=== PATIENT | male | born 1995 | race Caucasian/White ===

== ENCOUNTER 2017-07-13 03:32 | Emergency (ER) | payer BC ==
[~2017-07-13] VITALS: Ht 182.9 cm; Wt 92.0 kg
[2017-07-13 03:35] VITALS: BP 125/69; PULSE 118; RESP 16; TEMP 98; O2SAT 99
[2017-07-13] MEDS ORDERED: ONDANSETRON HCL 4 MG/2 ML VIAL ONE (03:58)
[2017-07-13] MEDS ORDERED: SODIUM CHLORID 0.9% 500 ML INJ 500 ML IV ONE (04:00)
[2017-07-13] MEDS ORDERED: NITROGLYCERIN 2% OINT 1 GM PACKET TOP ONE (04:00)
[2017-07-13] MEDS ORDERED: SODIUM CHLORIDE 0.9% FLUSH 10 ML FLUSH IVF PRN (04:00)
[2017-07-13] MEDS ORDERED: ONDANSETRON HCL 4 MG/2 ML VIAL IV PUSH ONE (04:00)
[2017-07-13 04:01] VITALS: BP_SYST 132; BP_SYST 136; BP_DIAS 65; BP_DIAS 66
--- NOTE | 2017-07-13 04:18 | RADRPT ---
EXAM DATE/TIME: 07/13/2017 04:09 [facility] COMPARISON: No previous studies available for comparison. INDICATIONS : Chest pain. MEDICAL HISTORY : None. SURGICAL HISTORY : None. ENCOUNTER: Initial ACUITY: 1 day PAIN SCORE: 4/10 LOCATION: Left chest FINDINGS: A single view of the chest demonstrates the lungs to be symmetrically aerated without evidence of mas s, infiltrate or effusion. The cardiomediastinal contours are unremarkable. Osseous structures are intact. CONCLUSION: No acute disease. Madhav Sequeira MD on July 13, 2017 at 4:16 Board Certified Radiologist. This report was verified electronically.
[2017-07-13] MEDS ORDERED: ALUMINUM/MAGNESIUM/SIMETH 30 ML CUP PO ONE (04:30)
[2017-07-13] MEDS ORDERED: LIDOCAINE VISCOUS 2% SOLN 15 ML UDC SWISH-SWAL ONE (04:30)
[2017-07-13 04:32] LABS: AUTOMATED NEUTROPHIL # 9.1 TH/MM3 (1.8-7.7); BASOPHIL % 0.3 % (0.0-2.0); EOSINOPHIL # 0.2 TH/MM3 (0-0.4); EOSINOPHIL % 1.7 % (0.0-4.0); HEMOGLOBIN 17.9 GM/DL (13.0-17.0); LYMPH % 9.9 % (9.0-44.0); LYMPHOCYTE # 1.1 TH/MM3 (1.0-4.8); MEAN CELL VOLUME 91.6 FL (80.0-100.0); MEAN CORPUSCULAR HEMOGLOBIN 32.1 PG (27.0-34.0); MEAN CORPUSCULAR HGB CONC 35.1 % (32.0-36.0); MEAN PLATELET VOLUME 9.1 FL (7.0-11.0); MONO % 5.5 % (0.0-8.0); MONOCYTE # 0.6 TH/MM3 (0-0.9); NEUT % 82.6 % (16.0-70.0); PLATELET COUNT 196 TH/MM3 (150-450); RED BLOOD COUNT 5.57 MIL/MM3 (4.50-5.90); RED CELL DISTRIBUTION WIDTH 12.9 % (11.6-17.2)
[2017-07-13 04:47] LABS: ALBUMIN 4.3 GM/DL (3.4-5.0); ALT (GPT) 23 U/L (9-52); AST (GOT) 13 U/L (15-39); BLOOD UREA NITROGEN 16 MG/DL (7-18); CALCIUM 8.3 MG/DL (8.5-10.1); CHLORIDE 102 MEQ/L (98-107); CREATININE 1.11 MG/DL (0.60-1.30); GLOMERULAR FILTRATION RATE 84 ML/MIN (>89); GLUCOSE,RANDOM 124 MG/DL (74-106); LIPASE 107 U/L (73-393); MAGNESIUM 1.8 MG/DL (1.5-2.5); SODIUM (NA) 136 MEQ/L (136-145)
[2017-07-13 04:48] LABS: INTERNATIONAL NORMALIZED RATIO 1.1 RATIO; PROTHROMBIN TIME - PATIENT 10.7 SEC (9.8-11.6)
[2017-07-13 04:51] LABS: ALKALINE PHOSPHATASE 71 U/L (45-117); D-DIMER 0.27 MG/L FEU (0.00-0.50); TOTAL BILIRUBIN ADULT 1.3 MG/DL (0.2-1.0); TOTAL PROTEIN 7.7 GM/DL (6.4-8.2); TROPONIN I LESS THAN 0.02 NG/ML (0.02-0.05)
[2017-07-13] MEDS ORDERED: IOHEXOL 350 MG/ML 10 ML VIAL (for RAD DIAG) IVCONTRAST ONE (05:39)
--- NOTE | 2017-07-13 06:08 | RADRPT ---
EXAM DATE/TIME: 07/13/2017 05:17 [facility] COMPARISON: No previous studies available for comparison. INDICATIONS : Chest pain. IV CONTRAST: 100 cc Omnipaque 350 (iohexol) IV RADIATION DOSE: 8.52 CTDIvol (mGy) MEDICAL HISTORY : Cardiovascular disease. SURGICAL HISTORY : None. ENCOUNTER: Initial ACUITY: 1 day PAIN SCALE: 6/10 LOCATION: chest TECHNIQUE: Volumetric scanning was performed using a multi-row detector CT scanner. The data was post processed with a variety of visualization algorithms including full volume maximum intensity projection, multi -planar sliding thin slab reformation, curved planar reformation, and surface rendering techniques. Using automated exposure control and adjustment of the mA and/or kV according to patient size, radiat ion dose was kept as low as reasonably achievable to obtain optimal diagnostic quality images. DICOM format image data is available electronically for review and comparison. FINDINGS: LUNGS: There is no consolidation or pneumothorax. No concerning pulmonary nodule is visualized. No pleural fluid is present. MEDIASTINUM: No abnormally enlarged lymph nodes by CT criteria. No axillary or hilar abnormalities are identified. ABDOMEN: The liver and spleen are free of focal defects. The gallbladder and pancreas demonstrate no abnormali ty. The adrenal glands are normal. The kidneys demonstrate no evidence of solid renal mass or hydrone phrosis. No free fluid or abdominal masses are identified. No para-aortic adenopathy is seen. PELVIS: No evidence of free fluid or pelvic mass. No abnormally enlarged inguinal or retroperitoneal lymph no jhony are present. The bladder is unremarkable. THORACIC AORTA: The thoracic aortic root is normal with normal branching of the great vessels. There is no evidence of aneurysm or dissection. ABDOMINAL AORTA: The aorta is normal in caliber without aneurysm or dissection. The renal arteries are patent bilater ally. The proximal celiac and superior mesenteric arteries are patent and normal in diameter. PELVIC VESSELS: The internal iliac and external iliac vessels are patent without aneurysm or stenosis. CONCLUSION: Negative CTA of the aorta. Madhav Sequeira MD on July 13, 2017 at 6:02 Board Certified Radiologist. This report was verified electronically.
[2017-07-13] MEDS ORDERED: traMADol HCL 50 MG TAB PO ONE (06:30)
--- NOTE | 2017-07-13 06:30 | PD ---
HPI . Chest pain Chief Complaint: Chest Pain Time Seen by Provider: 03:56 Travel History International Travel<30 days: No Contact w/Intl Traveler<30days: No Traveled to known affect area: No History of Present Illness HPI 22-year-old male with history of ventral septal defect congenitally, not requiring surgery, presents with sudden onset sharp substernal chest pain nonradiating worse with lying back, deep breath, associated with nausea. Patient has no change in exercise tolerance, does note having recent plane flight from [place], as well as recent URI type symptoms. Patient has had several episodes of chest pain prior that did not feel like this however that rate that required cardiology workup including echocardiogram that had resulted as normal as per patient. No fevers chills sweats no cough. No shortness of breath. No night sweats no weight loss. PFSH Past Medical History Narrative Medical Past medical history reviewed. See history of present illness Cardiovascular Problems: Yes (VSD as a child) Diminished Hearing: No Tetanus Vaccination: Unknown Influenza Vaccination: No Past Surgical History Surgical History: No Previous Surgery Social History Alcohol Use: Yes (occ) Tobacco Use: No Substance Use: No Allergies-Medications (Allergen,Severity, Reaction): Coded Allergies: No Known Allergies (Unverified , 07/13/17) Reported Meds & Prescriptions Reported Meds & Active Scripts Active No Active Prescriptions or Reported Medications Narrative Medication Allergies and medications reviewed Review of Systems Except as stated in HPI: all other systems reviewed are Neg General / Constitutional: No: Fever Eyes: No: Visual changes HENT: No: Headaches Cardiovascular: Positive: Chest Pain or Discomfort, No: Palpitations, Irregular Rhythm, Tachycardia, Diaphoresis, Syncope, Dyspnea on exertion, Varicosities, Edema Respiratory: No: Shortness of Breath Gastrointestinal: Positive: Nausea, Vomiting, No: Abdominal Pain Genitourinary: No: Dysuria Musculoskeletal: No: Pain Skin: No Rash Neurologic: No: Weakness Psychiatric: No: Depression Endocrine: No: Polydipsia Hematologic/Lymphatic: No: Easy Bruising Physical Exam Narrative GENERAL: Awake alert, oriented 3, patient appears uncomfortable in mild distress. Tachycardic at 120 bpm regular SKIN: Warm and dry. Color is sallow and pale no cyanosis HEAD: Atraumatic. Normocephalic. EYES: Pupils equal and round. No scleral icterus. No injection or drainage. ENT: No nasal bleeding or discharge. Mucous membranes pink and moist. NECK: Trachea midline. No JVD. Supple CARDIOVASCULAR: Tachycardia regular rhythm, no murmurs or gallops. No carotid bruits. Pulses equal bilateral 4. No pulsatile masses RESPIRATORY: No accessory muscle use. Clear to auscultation. Breath sounds equal bilaterally. GASTROINTESTINAL: Abdomen soft, non-tender, nondistended. Hepatic and splenic margins not palpable. MUSCULOSKELETAL: Extremities without clubbing, cyanosis, or edema. No obvious deformities. NEUROLOGICAL: Awake and alert. No obvious cranial nerve deficits. Motor grossly within normal limits. Five out of 5 muscle strength in the arms and legs. Normal speech. PSYCHIATRIC: Appropriate mood and affect; insight and judgment normal. Data Data Last Documented VS Vital Signs Date Time Temp Pulse Resp B/P (MAP) Pulse Ox O2 Delivery O2 Flow Rate FiO2 07/13/17 04:02 96 Nasal Cannula 2.00 07/13/17 04:01 136/66 (89) 132/65 (87) 07/13/17 03:35 98.0 118 16 Orders Orders Electrocardiogram (07/13/17 03:56) B-Type Natriuretic Peptide (07/13/17 03:56) Ckmb (Isoenzyme) Profile (07/13/17 03:56) Complete Blood Count With Diff (07/13/17 03:56) Comprehensive Metabolic Panel (07/13/17 03:56) D-Dimer (07/13/17 03:56) Magnesium (Mg) (07/13/17 03:56) Prothrombin Time / Inr (Pt) (07/13/17 03:56) Act Partial Throm Time (Ptt) (07/13/17 03:56) Troponin I (07/13/17 03:56) Lipase (07/13/17 03:56) Chest, Single Ap (07/13/17 03:56) Ecg Monitoring (07/13/17 03:56) Bilateral Bp Monitoring (07/13/17 03:56) Iv Access Insert/Monitor (07/13/17 03:56) Oximetry (07/13/17 03:56) Oxygen Administration (07/13/17 03:56) Nitroglycerin 2% Oint (Nitroglycerin 2% (07/13/17 04:00) Sodium Chloride 0.9% Flush (Ns Flush) (07/13/17 04:00) Sodium Chlorid 0.9% 500 Ml Inj (Ns 500 M (07/13/17 04:00) Westergren Sedimentation Rate (07/13/17 03:56) Ondansetron Inj (Zofran Inj) (07/13/17 04:00) Influenzae A/B Antigen (07/13/17 03:56) Ondansetron Inj (Zofran Inj) (07/13/17 03:58) Al-Mag Hy-Si 40-40-4 Mg/Ml Liq (Mag-Al P (07/13/17 04:30) Lidocaine 2% Viscous (Xylocaine 2% Visco (07/13/17 04:30) CKMB (07/13/17 04:10) CKMB% (07/13/17 04:10) Cta Thor Abd Aorta W Iv C W3d (07/13/17 ) Iohexol 350 Inj (Omnipaque 350 Inj) (07/13/17 05:39) Tramadol (Ultram) (07/13/17 06:30) Labs Laboratory Tests Test 07/13/17 04:10 White Blood Count 11.0 TH/MM3 Red Blood Count 5.57 MIL/MM3 Hemoglobin 17.9 GM/DL Hematocrit 51.0 % Mean Corpuscular Volume 91.6 FL Mean Corpuscular Hemoglobin 32.1 PG Mean Corpuscular Hemoglobin Concent 35.1 % Red Cell Distribution Width 12.9 % Platelet Count 196 TH/MM3 Mean Platelet Volume 9.1 FL Neutrophils (%) (Auto) 82.6 % Lymphocytes (%) (Auto) 9.9 % Monocytes (%) (Auto) 5.5 % Eosinophils (%) (Auto) 1.7 % Basophils (%) (Auto) 0.3 % Neutrophils # (Auto) 9.1 TH/MM3 Lymphocytes # (Auto) 1.1 TH/MM3 Monocytes # (Auto) 0.6 TH/MM3 Eosinophils # (Auto) 0.2 TH/MM3 Basophils # (Auto) 0.0 TH/MM3 CBC Comment DIFF FINAL Differential Comment Erythrocyte Sedimentation Rate 1 mm/hr Prothrombin Time 10.7 SEC Prothromb Time International Ratio 1.1 RATIO Activated Partial Thromboplast Time 21.2 SEC D-Dimer Quantitative (PE/DVT) 0.27 MG/L FEU Blood Urea Nitrogen 16 MG/DL Creatinine 1.11 MG/DL Random Glucose 124 MG/DL Total Protein 7.7 GM/DL Albumin 4.3 GM/DL Calcium Level 8.3 MG/DL Magnesium Level 1.8 MG/DL Alkaline Phosphatase 71 U/L Aspartate Amino Transf (AST/SGOT) 13 U/L Alanine Aminotransferase (ALT/SGPT) 23 U/L Total Bilirubin 1.3 MG/DL Sodium Level 136 MEQ/L Potassium Level 3.5 MEQ/L Chloride Level 102 MEQ/L Carbon Dioxide Level 24.0 MEQ/L Anion Gap 10 MEQ/L Estimat Glomerular Filtration Rate 84 ML/MIN Total Creatine Kinase 152 U/L Creatine Kinase MB 0.9 NG/ML Troponin I LESS THAN 0.02 NG/ML B-Type Natriuretic Peptide LESS THAN 2 PG/ML Lipase 107 U/L MDM Medical Decision Making Medical Screen Exam Complete: Yes Emergency Medical Condition: Yes Medical Record Reviewed: Yes Differential Diagnosis Chest pain, aortic dissection, pleuritis, esophageal reflux Narrative Course EKG sinus tachycardia 10 6 bpm, short CT interval, incomplete right ventricular conduction delay consistent with patient's history of septal defect otherwise nonischemic cardiogram Chest x-ray negative Laboratory examinations reviewed, no slipping on rales. Patient's cardiac enzymes, d-dimer and sedimentation rate normal CT angiogram aorta negative for dissection Patient given Maalox lidocaine with mild potential relief of pain. Diagnosis Primary Impression: Atypical chest pain Patient Instructions: Chest Pain (ED), General Instructions Additional Instructions: Follow-up with cardiology. Recommend outpatient echocardiogram and Holter monitor. Return probably for worsening Scripts No Active Prescriptions or Reported Meds Disposition: 01 DISCHARGE HOME Condition: Stable Wesly Cruz MD Jul 13, 2017 06:30
[2017-07-13 07:03] VITALS: BP 130/64
--- NOTE | 2017-07-13 09:37 | EKG ---
Date Performed: 07/13/2017 Time Performed: 03:52:19 PTAGE: 22 years EKG: SINUS TACHYCARDIA POSSIBLE RIGHT ATRIAL ENLARGEMENT POSSIBLE RIGHT VENTRICULAR CONDUCTION D ELAY ST DEVIATION AND MODERATE T-WAVE ABNORMALITY, CONSIDER LATERAL ISCHEMIA ABNORMAL ECG NO PREVIOUS TRACING DOCTOR: Eddie Mcdaniel Interpretating Date/Time 07/13/2017 09:36:42
== END 2017-07-13 07:06 | disposition home or self-care (01) ==
LOC: NEPC 03:32
DX: R07.89 Other chest pain (principal); R11.0 Nausea; R94.31 Abnormal electrocardiogram [ECG] [EKG]; Z86.79 Personal history of other diseases of the circulatory system
CPT/HCPCS: 71045; 71275; 74174; 80053; 82550; 82552; 83690; 83735; 83880; 84484; 85025; 85379; 85610; 85652; 85730; 87804; 93005; 96361; 96374; 99285; J2405; J7040; Q9967